=== PATIENT | male | born 1970 ===

== ENCOUNTER 2017-01-29 02:51 | Emergency (ER) | payer SELFPAY ==
[2017-01-29 03:09] VITALS: TEMP 97.7
--- NOTE | 2017-01-29 03:51 | ED PDOC ---
Arrival/HPI - General Chief Complaint: ENT Problem Time Seen by Provider: 01/29/17 03:07 Historian: Patient - History of Present Illness Narrative History of Present Illness (Text): 01/29/17 03:48 Manuel Maldonado is a 46 year old male who presents to the emergency department complaining of left ear pain for past 2 weeks. States that pain was improving, but worsened earlier yesterday night which prompted him to present to the emergency department for evaluation. States he went to swim 2 weeks prior before symptoms presented. Patient informs that pain radiates to the jaw. Denies any fever, chills, headache, dizziness, nausea, vomiting, diarrhea, or any other complaints at this time. Time/Duration: > week (2 weeks ) Symptom Onset: Gradual Severity Level: Mild Activities at Onset: Light Past Medical History - Provider Review Nursing Documentation Reviewed: Yes - Infectious Disease Hx of Infectious Diseases: None - Psychiatric Hx Substance Use: No - Anesthesia Hx Anesthesia: No Family/Social History - Physician Review Nursing Documentation Reviewed: Yes Family/Social History: No Known Family HX Smoking Status: Never Smoked Hx Alcohol Use: No Hx Substance Use: No Allergies/Home Meds Allergies/Adverse Reactions: Allergies No Known Allergies Allergy (Verified 01/29/17 03:17) Review of Systems - Physician Review All systems were reviewed & negative as marked: Yes - Review of Systems Constitutional: Normal. absent: Fatigue, Fevers ENT: Other (left ear pain ) Respiratory: Normal. absent: SOB, Cough, Sputum Cardiovascular: Normal. absent: Chest Pain, Palpitations Gastrointestinal: Normal. absent: Abdominal Pain, Diarrhea, Nausea, Vomiting Genitourinary Male: Normal Musculoskeletal: Normal Neurological: Normal. absent: Headache, Dizziness Psychiatric: Normal Physical Exam Vital Signs Reviewed: Yes Vital Signs Temp Pulse Resp BP Pulse Ox 01/29/17 05:59 84 14 120/76 98 01/29/17 03:08 97.7 F 66 18 116/76 99 Temperature: Afebrile Blood Pressure: Normal Pulse: Regular Respiratory Rate: Normal Appearance: Positive for: Well-Appearing, Non-Toxic, Comfortable Pain Distress: None Mental Status: Positive for: Alert and Oriented X 3 - Systems Exam Head: Present: Atraumatic, Normocephalic Pupils: Present: PERRL Conjunctiva: Present: Normal Ears: Present: Erythema (left TM ). No: TM Bulging, Fluid, TM Perf Mouth: Present: Moist Mucous Membranes Respiratory/Chest: Present: Clear to Auscultation, Good Air Exchange. No: Respiratory Distress, Accessory Muscle Use Cardiovascular: Present: Regular Rate and Rhythm, Normal S1, S2. No: Murmurs Abdomen: Present: Normal Bowel Sounds. No: Tenderness, Distention, Peritoneal Signs, Rebound, Guarding Upper Extremity: Present: Normal Inspection. No: Cyanosis, Edema Lower Extremity: Present: Normal Inspection. No: Edema Neurological: Present: GCS=15, CN II-XII Intact, Speech Normal, Motor Func Grossly Intact, Normal Sensory Function Skin: Present: Warm, Dry, Normal Color. No: Rashes Psychiatric: Present: Alert, Oriented x 3, Normal Insight, Normal Concentration Medical Decision Making ED Course and Treatment: 01/29/17 03:53 Impression: A 46 year old male who presents to the emergency department complaining of left ear pain for past 2 weeks. Plan: -- Reassess and disposition Progress Notes: - Medication Orders Current Medication Orders: Discontinued Medications Amoxicillin (Amoxil 500 Mg Cap) 500 mg PO STAT STA PRN Reason: Protocol Stop: 01/29/17 04:09 Last Admin: 01/29/17 04:23 Dose: 500 mg Ibuprofen (Motrin Tab) 400 mg PO ONCE STA Stop: 01/29/17 04:08 Last Admin: 01/29/17 04:23 Dose: 400 mg - Scribe Statement The provider has reviewed the documentation as recorded by the Aliciaibe Stu Malin Provider Attestation: Provider Scribe Attestation: All medical record entries made by the Aliciaibjhoan were at my direction and personally dictated by me. I have reviewed the chart and agree that the record accurately reflects my personal performance of the history, physical exam, medical decision making, and the department course for this patient. I have also personally directed, reviewed, and agree with the discharge instructions and disposition. Disposition/Present on Arrival - Present on Arrival Any Indicators Present on Arrival: No History of DVT/PE: No History of Uncontrolled Diabetes: No Urinary Catheter: No History of Decub. Ulcer: No History Surgical Site Infection Following: None - Disposition Have Diagnosis and Disposition been Completed?: Yes Diagnosis: Otitis media of right ear Disposition: HOME/ ROUTINE Disposition Time: 05:00 Condition: GOOD Discharge Instructions (ExitCare): Otitis Media (ED) Prescriptions: Amoxicillin 875 mg PO BID #20 tab Referrals: PCP,NO [Primary Care Provider] - Follow up with primary
[2017-01-29 06:01] VITALS: BP 120/76; PULSE 84; RESP 14; O2SAT 98
== END 2017-01-29 06:09 | disposition home or self-care (01) ==
LOC: ED 02:51
DX: H66.92 Otitis media, unspecified, left ear (principal)